=== PATIENT | male | born 1990 | race African-American/Black ===

== ENCOUNTER 2019-10-04 03:31 | Emergency (ER) | payer OTHER ==
[~2019-10-04] VITALS: Ht 185.4 cm; Wt 77.1 kg
[~2019-10-04 03:31] MED LIST: IBUPROFEN 600600 M1 PO; MOBIC15 MG PO; NORCO 5-325 TA1 EACH PO; PENICILLIN V P500 MG PO
[2019-10-04] MEDS ORDERED: TRAMADOL 50 MG50 MG PO (04:45)
[2019-10-04] MEDS ORDERED: PENICILLIN V P500 MG PO (04:45)
[2019-10-04 05:30] VITALS: BP 138/78
== END 2019-10-04 05:10 | disposition home or self-care (01) ==
LOC: ER 03:31
DX: K08.89 Other specified disorders of teeth and supporting structures (principal); F17.210 Nicotine dependence, cigarettes, uncomplicated